=== PATIENT | male | born 1975 | race Caucasian/White ===

== ENCOUNTER → 2017-08-25 14:04 | Outpatient (CLI) | payer OTHER ==
[2015-03-19 13:16] VITALS: BMI 37.8
[~2017-08-25 14:04] MED LIST: CLOTRIM ANTIFUN15 GM; DEXILANT60 MG PO; PROAIR HFA8.5 GM INH; ROBAXIN500 MG PO; ULTRAM50 MG PO; ZESTORETIC 20-1 EACH PO
== END | disposition home or self-care (01) ==
LOC: D.RT 14:00
DX: Z02.71 Encounter for disability determination (principal)

== ENCOUNTER 2019-08-01 14:09 | Emergency (ER) | payer MEDICAID ==
[~2019-08-01] VITALS: Ht 167.6 cm; Wt 118.2 kg
[2019-08-01 14:27] VITALS: Ht 167.6 cm; Wt 118.2 kg
[2019-08-01] MEDS ORDERED: GLIPIZIDE10 MG PO (14:29)
[2019-08-01] MEDS ORDERED: OMEPRAZOLE40 MG PO (14:29)
[2019-08-01] MEDS ORDERED: LISINOPRIL10 MG PO (14:29)
[2019-08-01] MEDS ORDERED: GLUCOPHAGE500 MG PO (14:29)
[2019-08-01] MEDS ORDERED: KEPPRA500 MG PO (14:29)
[2019-08-01] MEDS ORDERED: PINDOLOL5 MG PO (14:30)
== END 2019-08-01 15:50 | disposition home or self-care (01) ==
LOC: D.ER 14:09
DX: H57.11 Ocular pain, right eye (principal); H53.9 Unspecified visual disturbance; E11.9 Type 2 diabetes mellitus without complications; Z79.84 Long term (current) use of oral hypoglycemic drugs; I10 Essential (primary) hypertension; K21.9 Gastro-esophageal reflux disease without esophagitis

== ENCOUNTER 2020-02-10 18:21 | Emergency (ER) | payer MEDICAID ==
[~2020-02-10] VITALS: Ht 170.2 cm; Wt 113.6 kg
[~2020-02-10 18:21] MED LIST changes: +GLIPIZIDE10 MG PO; +GLUCOPHAGE500 MG PO; +KEPPRA500 MG PO; +LISINOPRIL10 MG PO; +OMEPRAZOLE40 MG PO; +PINDOLOL5 MG PO
[2020-02-10 18:35] VITALS: Ht 170.2 cm; Wt 113.6 kg
[2020-02-10] MEDS ORDERED: HYDROCODON-ACE1 EAC7 PO (19:42)
[2020-02-10 20:08] VITALS: BP 122/88
== END 2020-02-10 20:09 | disposition home or self-care (01) ==
LOC: D.ER 18:21
DX: S62.633A Displaced fracture of distal phalanx of left middle finger, initial encounter for closed fracture (principal); S62.625A Displaced fracture of middle phalanx of left ring finger, initial encounter for closed fracture; E11.9 Type 2 diabetes mellitus without complications; J45.909 Unspecified asthma, uncomplicated; I10 Essential (primary) hypertension; K21.9 Gastro-esophageal reflux disease without esophagitis; Z79.84 Long term (current) use of oral hypoglycemic drugs; X58.XXXA Exposure to other specified factors, initial encounter

== ENCOUNTER 2020-03-04 15:51 | Emergency (ER) | payer MEDICAID ==
[~2020-03-04] VITALS: Ht 170.2 cm; Wt 117.9 kg
[~2020-03-04 15:51] MED LIST changes: +HYDROCODON-ACE1 EAC7 PO
[2020-03-04 16:01] VITALS: Ht 170.2 cm; Wt 117.9 kg
[2020-03-04] MEDS ORDERED: VOLTAREN75 MG PO (17:10)
[2020-03-04 17:33] VITALS: BP 141/78
[2020-03-05] MEDS ORDERED: PROAIR HFA8.5 G1 INH (16:31)
[2020-03-05] MEDS ORDERED: KLONOPIN1 MG PO (16:33)
[2020-03-06] MEDS ORDERED: VISTARIL50 MG PO (06:50)
[2020-03-06] MEDS ORDERED: DILAUDID4 MG PO (06:50)
== END 2020-03-04 17:34 | disposition home or self-care (01) ==
LOC: D.ER 15:51
DX: S62.605G Fracture of unspecified phalanx of left ring finger, subsequent encounter for fracture with delayed healing (principal); S62.603G Fracture of unspecified phalanx of left middle finger, subsequent encounter for fracture with delayed healing; M79.645 Pain in left finger(s); E11.9 Type 2 diabetes mellitus without complications; Z79.84 Long term (current) use of oral hypoglycemic drugs; I10 Essential (primary) hypertension; K21.9 Gastro-esophageal reflux disease without esophagitis

== ENCOUNTER 2020-03-07 05:20 | Day surgery (SDC) | payer MEDICAID ==
[2020-03-06 08:59] LABS: HEMATOCRIT 38.7 % (42.0-54.0); HEMOGLOBIN 12.5 g/dL (13.5-17.5); MCH 30.3 pg (26.0-34.0); MCHC 32.3 g/dL (31.0-37.0); MCV 93.9 fL (80.0-100.0); MEAN PLATELET VOLUME 8.5 fL (7.4-10.4); RBC 4.12 10x6/uL (4.20-6.10); RDW 12.7 % (11.5-14.5); WBC 7.9 10x3/uL (4.8-10.8)
[2020-03-06 09:58] VITALS: BP 135/82; BMI 40.8
[2020-03-06 10:20] LABS: ANION GAP 12.2 mmol/L (8-16); CALCIUM 9.3 mg/dL (8.5-10.1); CARBON DIOXIDE 23.7 mmol/L (21.0-32.0); CREATININE - SERUM 1.3 mg/dL (0.6-1.3); POTASSIUM - SERUM 4.9 mmol/L (3.5-5.1)
--- NOTE | 2020-03-06 15:35 | NUR ---
DR THORNE ELECTS TO POSTPONE PATIENT'S SURGERY DUE TO WAIT TIME. PATIENT AGREEABLE. RIGHT HAND PIV DC'D WITH TIP INTACT. DR THORNE GIVES PATIENT PRESCRIPTION FOR PERCOCET. PATIENT ADVISED TO HAVE FAMILY MEMBER DRIVE HIM HOME DUE TO PAIN MEDICINE GIVEN. PATIENT STATES UNDERSTANDING. PATIENT ADVISED TO RETURN TOMORROW MORNING AT 0500 FOR POSTPONED SURGERY, STATES UNDERSTANDING
[~2020-03-07] VITALS: Ht 170.2 cm; Wt 117.9 kg
[~2020-03-07 05:20] MED LIST changes: +DILAUDID4 MG PO; +KLONOPIN1 MG PO; +PROAIR HFA8.5 G1 INH; +VISTARIL50 MG PO; +VOLTAREN75 MG PO
[2020-03-07 05:36] VITALS: BP 135/89; Ht 170.2 cm; Wt 117.9 kg
--- NOTE | 2020-03-07 11:46 | NUR ---
1141 PT'S RIDE HERE, DC INSTS REVIEWED VOICED UNDERSTANDING RX GIVEN RELEASED IN WC
--- NOTE | 2020-03-08 07:59 | OP ---
PATIENT NAME: CATHLEEN SOLANO MEDICAL RECORD: [id number] :79 LOCATION:[facility] ADMISSION DATE: SURGEON: STEVE THORNE DO DATE OF OPERATION: 03/07/2020 PROCEDURE PERFORMED: Left ring middle phalanx open reduction and internal fixation with external fixator application and left middle finger mallet closed reduction and percutaneous pinning. PREOPERATIVE DIAGNOSES: Left middle finger mallet and left ring middle phalanx comminuted displaced closed middle phalanx fracture of the left ring finger. POSTOPERATIVE DIAGNOSES: Left middle finger mallet and left ring middle phalanx comminuted displaced closed middle phalanx fracture of the left ring finger. INDICATIONS: Mr. Solano is a 44-year-old male who was on a rope apparently 2 weeks ago and fractured his fingers. He was seen in the ER, sent to my office after he got a referral from his insurance. He was seen 2 weeks later. I informed him that I may not be able to fix his fingers, that he may have loss of range of motion in that hand and malrotation, malunion, nonunion, continued pain, and lack of use of the hand and he is aware of all that as well as infection, bleeding, damage to nerves and vessels in the area and he signed the consent. SURGEON: Steve Thorne DO DESCRIPTION OF PROCEDURE: The patient was taken to the operative suite and laid in supine position. He was given 2 g of Ancef preoperatively. He was then sedated and LMA was placed. The left upper extremity was then prepped and draped in sterile fashion. Time-out was performed. Everyone was in agreeance with correct side, site, the patient, and procedure. I then began by pinning the mallet finger of the middle finger or long finger. I reduced it and put a 0.045 K wire from the distal tip in through the distal phalanx into the middle phalanx, straightened the finger out and tamped it in so is underneath the skin after cutting it. I then addressed the ring finger middle phalanx. I tried to reduce it closed. This was not successful. I then opened it on the radial side, made careful dissection down to the fracture, and got it to reduce. In order to hold it in reduction, I put an external fixator on with a 0.045 K-wire pin to the proximal phalanx distal part and the distal part of the middle phalanx and with dental rubber bands held traction on it and then through a single small incision on the dorsal aspect of the hand put 2 screws, one 8 mm, one 10 mm and 2 from dorsal to volar, holding the ADP reduction. This was then x-rayed and seemed to hold adequately and out to length. I did not note any malrotation. There could have been some as I am able to flex it and did not want to lose the reduction, but he will stay that way for 3 weeks at least. Once that was done and completed, I did inflate the tourniquet, one starting on the ring finger after opening it and it was inflated to 250 mmHg, was up for 61 minutes. The tourniquet was then let down at that point. I then closed some of the soft tissue radial structures with 5-0 Vicryl in a [id number] fashion. Then, Jeremiah Ervin, certified surgical first student, closed the skin with 4-0 nylon in a simple fashion. He was then dressed with Adaptic, 4 x 4's, Kerlix, and Gage wrap, padding it very well. I did do a digital block on both digits with 0.25% Marcaine with epinephrine and put approximately 2 mL on each of the radial and ulnar sides. After that and he was dressed, he was awakened and taken to recovery in stable condition. OPERATIVE REPORT [id number] CATHLEEN SOLANO BLOOD LOSS: Minimal. COMPLICATIONS: None. NTS:[id number] Voice Confirmation ID: [id number] DOCUMENT ID: [id number] STEVE THORNE DO at 0759 CC: [id number] DICTATION DATE: 03/07/20 0844 SUPERVISOR VENEER: 03/07/20 1823 [facility] 03/07/20 [facility] [address] [place] [address]
== END 2020-03-07 11:45 | disposition home or self-care (01) ==
LOC: D.OPS 05:20
PROVIDERS: Anesthesiology; ATTEND Orthopaedic Surgery
DX: S62.625A Displaced fracture of middle phalanx of left ring finger, initial encounter for closed fracture (principal); S62.632A Displaced fracture of distal phalanx of right middle finger, initial encounter for closed fracture; X58.XXXA Exposure to other specified factors, initial encounter; M20.012 Mallet finger of left finger(s); M79.642 Pain in left hand; M79.641 Pain in right hand; F17.200 Nicotine dependence, unspecified, uncomplicated

== ENCOUNTER 2020-04-03 06:42 | Emergency (ER) | payer MEDICAID ==
[~2020-04-03] VITALS: Ht 170.2 cm; Wt 97.3 kg
[2020-04-03 06:49] VITALS: BP 141/84; Ht 170.2 cm; Wt 97.3 kg
== END 2020-04-03 08:13 | disposition left against medical advice (07) ==
LOC: D.ER 06:42
DX: M79.645 Pain in left finger(s) (principal); S62.605D Fracture of unspecified phalanx of left ring finger, subsequent encounter for fracture with routine healing; X58.XXXD Exposure to other specified factors, subsequent encounter; Z98.890 Other specified postprocedural states; Z76.5 Malingerer [conscious simulation]; E11.9 Type 2 diabetes mellitus without complications; Z79.84 Long term (current) use of oral hypoglycemic drugs; I10 Essential (primary) hypertension

== ENCOUNTER → 2020-12-20 09:52 | Outpatient (CLI) | payer MEDICAID ==
[2020-07-27 16:45] VITALS: BMI 31.4
[~2020-12-20 09:52] MED LIST changes: +TORADOL10 MG PO
== END | disposition home or self-care (01) ==
LOC: D.CT 09:52
PROVIDERS: ATTEND Nurse Practitioner Family
DX: S62.625A Displaced fracture of middle phalanx of left ring finger, initial encounter for closed fracture (principal)